=== PATIENT | female | born 1960 | race Caucasian/White ===

== ENCOUNTER → 2021-05-17 | Day surgery (SDC) | payer OTHER | END | disposition home or self-care (01) | LOC: JRADUS-SUR 08:48 | PROVIDERS: ATTEND Obstetrics & Gynecology | PROC: 0HBU3ZX Excision of Left Breast, Percutaneous Approach, Diagnostic (ICD-10-PCS; principal; 2021-05-17) | DX: C50.412 Malignant neoplasm of upper-outer quadrant of left female breast (principal); C50.512 Malignant neoplasm of lower-outer quadrant of left female breast; Z17.0 Estrogen receptor positive status [ER+]; N63.21 Unspecified lump in the left breast, upper outer quadrant; N63.23 Unspecified lump in the left breast, lower outer quadrant | CPT/HCPCS: 19083; 19084; 77065-TC; 87899; A4648 ==